=== PATIENT | female | born 1985 ===

== ENCOUNTER 2022-09-23 07:46 | Day surgery (SDC) | payer OTHER ==
[~2022-09-23] VITALS: Ht 162.6 cm; Wt 141.1 kg
--- NOTE | 2022-09-23 10:41 | NUR ---
Ambulatory in [facility] warming gown applied. Surgical site prepped with 2% Chlorhexidine cloth wipe. History, Chart, Medications and Allergies reviewed before start of procedure.Lungs clear T/O to Auscultation. Patient confirms NPO status and agrees with scheduled surgery. Pre-Op teaching done. Pt verbalizes understanding. Patient reports completing Chlorhexadine shower X2 prior to admission to hospital.Patient States Post-Procedure ride home has been arranged.
--- NOTE | 2022-09-23 13:52 | NUR ---
REPORT RECEIVED FROM PAMELLA SYKES. VSS AND CONSISTENT WITH PT BASELINE. PT DENIES NAUSEA AT THIS TIME. PT REPORTS PAIN 3/10 TO RIGHT SIDE. PT REQUESTING PO FLUIDS AND TOLERATING THEM WELL. PT HAS 3 INCISIONS TO ABDOMEN WITH DERMABOND IN PLACE THAT ARE C/D/I WITHOUT DRAINAGE, REDNESS OR SWELLING. PT ABLE TO REPOSITION SELF IN BED.
--- NOTE | 2022-09-23 14:30 | NUR ---
Patient up to Ambulate independently. Gait steady. Discharge instructions reviewed with patient. Patient verbalizes understanding. Copy given to patient to take home. Dressing to procedure site clean, dry, intact with no visible drainage, swelling, erythema or bruising noted. Patient States Post-Procedure ride home has been arranged. Discharged via wheelchair to private car for ride home. PT BELONGINGS RETURNED TO PT.
== END 2022-09-23 23:16 | disposition home or self-care (01) ==
LOC: ORSCMMR 07:46 → ORD 11:00 → ORSCMMR 11:00 → ORD 10-06 14:30
PROVIDERS: Obstetrics & Gynecology
PROC: 0U5B8ZZ Destruction of Endometrium, Via Natural or Artificial Opening Endoscopic (ICD-10-PCS; principal; 2022-09-23 09:15)
PROC: 0UT74ZZ Resection of Bilateral Fallopian Tubes, Percutaneous Endoscopic Approach (ICD-10-PCS; principal; 2022-09-23 09:15)
DX: N92.1 Excessive and frequent menstruation with irregular cycle (principal); D50.0 Iron deficiency anemia secondary to blood loss (chronic); Z30.2 Encounter for sterilization; E66.01 Morbid (severe) obesity due to excess calories; Z68.43 Body mass index [BMI] 50.0-59.9, adult
CPT/HCPCS: 88302; 88305; A9270; J0690; J1100; J1885; J2405; J2704; J3010; J7120